=== PATIENT | male | born 1935 | race African-American/Black ===

== ENCOUNTER 2018-07-27 22:26 | Inpatient (IN) | payer MEDICARE ==
[2018-07-28] MEDS ORDERED: Dextrose 5% in Water 1,000 ML IV PRN (03:04)
[2018-07-28] MEDS ORDERED: Dextrose 50% Abboject 50 ML SYRINGE SLOW IVP PRN (03:04)
[2018-07-28] MEDS ORDERED: HumaLOG 300 UNITS/3 ML VIAL SC PRN (03:04)
[2018-07-28] MEDS ORDERED: Acetaminophen 325 MG TAB PO PRN (03:04)
[2018-07-28] MEDS ORDERED: Ondansetron PF 4 MG/2 ML Vial IVP PRN (03:04)
--- NOTE | 2018-07-28 03:41 | HP ---
PRIMARY CARE PHYSICIAN: Dr. Jonathan Knight. CHIEF COMPLAINT: Swelling and pain above right testicle. HISTORY OF PRESENT ILLNESS: Mr. Latosha Schulz is an 82-year-old male with a past medical history of hypertension, coronary artery disease, diabetes, who presents to the emergency department for swelling and pain of the groin area above the right testicle. The patient has been having this swelling for the past week, that has been getting worse. It started with 2 pimples that were bursted by his , and since then, it has become worse. The patient denies any fever. The patient denies any oozing of pus. The patient was not on any kind of antibiotics at home. The patient also denies any chest pain, nausea, vomiting, abdominal pain, diarrhea or shortness of breath. The patient reports that he has been compliant with his medication. PAST MEDICAL HISTORY: Diabetes, hypertension, coronary artery disease, and sleep apnea. PAST SURGICAL HISTORY: Coronary artery disease with bypass and stent. SOCIAL HISTORY: The patient denies smoking, drinking alcohol or any kind of illicit drugs. FAMILY HISTORY: Positive for myocardial infarction of mother. ALLERGIES: NO KNOWN ALLERGIES TO DRUGS. MEDICATIONS: The patient's current home medications include lovastatin, Lasix, spironolactone, enalapril, carvedilol, metformin, felodipine, aspirin, K-Dur, and Plavix. REVIEW OF SYSTEMS: Ten-point review of systems negative other than mentioned in the HPI. PHYSICAL EXAMINATION: VITAL SIGNS: Blood pressure 100/47, pulse 60, respiration rate 14, temperature 99, and O2 saturation 94% on room air. GENERAL: The patient is alert and is not in acute distress. HEAD: Atraumatic. EYES: Extraocular movement intact. EARS, NOSE, AND THROAT: No exudate, drainage or bleeding noted. NECK: No lymphadenopathy noted. CARDIOVASCULAR: No murmur, rubs or gallops. Regular rate and rhythm. RESPIRATORY: Clear bilaterally. No wheezes or rales noted. GI: Bowel sounds positive. Soft and nontender. : The patient has area above the scrotum anywhere from 4 to 5 inches x 1.5 inches of induration and tenderness noted. Unable to visualize any color changes due to the dark skin. No oozing of pus noted. Scrotum does not appear to be tender and there does not seem to be any swelling on the right side of the scrotum. Penis and left scrotum and area above the left scrotum, no swelling, tenderness or erythema noted. LOWER EXTREMITIES: No bilateral edema noted. SKIN: Except for what mentioned in the examination appeared to be normal. LABORATORY DATA: White blood cell count 16.3, hemoglobin 11.4, hematocrit 35.9, and platelets 144. Sodium 138, potassium 3.9, chloride 105, bicarb 20, BUN 28, creatinine 2.32, and glucose 155. CT of abdomen and pelvis reviewed. Incomplete imaging of the scrotum and groin of the right side, but there appears to be area of inflammation noted; however, it was not fully imaged. ASSESSMENT AND PLAN: 1. Cellulitis of the right groin area above the scrotum. Incomplete imaging on the CT scan. 2. Leukocytosis. 3. Elevated creatinine concerning for acute kidney injury. 4. Hypertension. 5. Coronary artery disease. 6. Diabetes. PLAN: The patient likely has cellulitis. Unable to rule out abscess at this point given incomplete CT abdomen imaging of the groin and the scrotum area. Per my examination, I did not feel any area of tenderness of the right scrotum. The patient was given vanc and Zosyn at the outside ER. We will continue vancomycin and Zosyn at this point. Obtain blood cultures. Obtain lactic acid and CRP. Ultrasound of the abdominal wall and scrotum ordered. If there is concern for abscess, recommend a urological consult. KIMBERLY. Review of the chart indicated that the patient's creatinine baseline seems to be around 1.37. The patient's creatinine on admission was 2.32. We will give gentle IV hydration for one day. Repeat labs in the morning. Diabetes. We will hold home metformin. We will manage with sliding scale insulin, low dose. Hypertension. Continue home medication. Coronary artery disease. Continue home medication. Medical power of portrait consultant, . The patient is full code. DVT prophylaxis addressed. Job ID: [id number]
[2018-07-28 03:48] LABS: #Basophils 0.1 thou/uL (0.0-0.2); #Eosinphils 0.3 thou/uL (0.0-0.7); #Monocytes 0.9 thou/uL (0.11-0.59); #Neutrophils 11.1 thou/uL (1.40-6.50); %Basophils 0.4 % (0.0-1.0); %Eosinophils 1.8 % (0.0-10.0); %Lymphocytes 14.1 % (21.0-51.0); %Monocytes 6.5 % (0.0-10.0); %Neutrophils 77.3 % (42.0-75.0); Hemoglobin 11.8 g/dL (14.0-18.0); Mean Corpuscular HGB CONC 31.9 g/dL (32.0-36.0); Mean Corpuscular Hemoglobin 31.8 pg (27.0-31.0); Mean Corpuscular Volume 99.7 fL (78.0-98.0); Platelet Count 152 thou/uL (130-400); RBC Distribution Width 13.4 % (11.5-14.5); Red Blood Cell (RBC) Count 3.72 mill/uL (4.70-6.10); White Blood Cell (WBC) Count 14.3 thou/uL (4.8-10.8)
[2018-07-28 04:00] LABS: Lactic Acid 0.9 mmol/L (0.5-2.2)
[2018-07-28 04:02] LABS: Anion Gap 13 mmol/L (10-20); BUN (Urea Nitrogen) 26 mg/dL (8.4-25.7); CRP (Inflammatory) 25.06 mg/dL (= or < 0.5); Calc. Creatinine Clearance 0 mL/min (70-130); Calcium 9.1 mg/dL (7.8-10.44); Carbon Dioxide 22 mmol/L (23-31); Chloride 106 mmol/L (98-107); Estimated GFR-MDRD 37; Glucose 139 mg/dL (83-110); Sodium 137 mmol/L (136-145)
[2018-07-28 04:05] VITALS: BMI 36.7
[2018-07-28] MEDS: Sodium Chloride 0.9% 1,000 ML IV SCH ×2 (04:11→20:23)
[2018-07-28] MEDS ORDERED: [UNRECOGNIZED DRUG - REMARK] IVPB PRN (04:22)
[2018-07-28] MEDS: Piperacillin/Tazobactam 2.25 GM in Sodium Chloride 0.9% 100 ML IVPB SCH ×3 (05:40→21:54)
[2018-07-28] MEDS: Heparin 5,000 UNITS/ML VIAL SC SCH ×4 (09:07→20:22)
--- NOTE | 2018-07-28 09:54 | CT ---
PRELIMINARY REPORT/[facility]/EMERGENTY AFTER-HOURS PROCEDURE CT Abdomen and Pelvis With Contrast EXAM DATE/TIME: 07/28/2018 12:44 AM CLINICAL HISTORY: 82 years old, male; Pain / swelling groin area; Eval for possible abscess / infection to groin area, drainage from wound. TECHNIQUE: Axial computed tomography images of the abdomen and pelvis with intravenous contrast. Coronal reforma tted images were created and reviewed. COMPARISON: No relevant prior studies available. FINDINGS: Lower thorax: Elevated right hemidiaphragm. Coronary artery calcification. Area of consolidation and/ or atelectasis within the right lower lobe. ABDOMEN: Liver: Normal. No mass. Gallbladder and bile ducts: Normal. No calcified stones. No ductal dilation. Pancreas: Normal. No ductal dilation. Spleen: Normal. No splenomegaly. Adrenals: Normal. No mass. 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 2.1 cm cyst in the la teral left renal cortex. No hydronephrosis. Stomach and bowel: Scattered colon diverticuli without evidence of diverticulitis. Appendix: No evidence of appendicitis. PELVIS: Bladder: Unremarkable as visualized. Reproductive: The scrotum is incompletely imaged but does exhibit subcutaneous edema. ABDOMEN and PELVIS: Intraperitoneal space: Normal. No free air. No significant fluid collection. Bones/joints: Spinal and right hip degenerative changes. Prior median sternotomy. Soft tissues: Small fat-containing umbilical / periumbilical hernia. Fat-containing inguinal hernias. No discrete soft tissue abscess. Vasculature: Normal. No abdominal aortic aneurysm. Lymph nodes: Normal. No enlarged lymph nodes. IMPRESSION: 1. No discrete soft tissue abscess. 2. The scrotum is incompletely imaged but does exhibit subcutaneous edema. 3. Scattered colon diverticuli without evidence of diverticulitis. 4. Area of consolidation and/or atelectasis within the right lower lobe. Thank you for allowing us to participate in the care of your patient. Dictated and Authenticated by: Brian Herzog MD 07/28/2018 1:29 AM Central Time ([place] & [place]) FINAL REPORT ABDOMEN CT WITH CONTRAST PELVIC CT WITH CONTRAST: HISTORY: Possible abscess or infection. Swelling. COMPARISON: None. FINDINGS: Limited evaluation due to motion degradation. This report is in agreement with the preliminary repor t by [facility]. Consolidation of the right lower lobe may be due to atelectasis or pneumonia. 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 Bilaterally, no obstructive uropathy. Visualized solid organs have overall normal enhancement. There is no evidence of bowel obstruction. Diverticulosis, without evidence of diverticulitis. Normal caliber appendix. Ventral abdominal hernia containing me senteric fat. There does appear to be edema involving the visualized scrotal soft tissues. No evide nce of a soft tissue or intraabdominal/intrapelvic abscess. POS: [facility]
--- NOTE | 2018-07-28 09:55 | ULT ---
TESTICULAR ULTRASOUND: HISTORY: Right scrotal swelling. COMPARISON: None. TECHNIQUE: Boykin scale, color flow, Doppler imaging, and spectral waveform analysis is performed of the left and right testicle. FINDINGS: RIGHT HEMISCROTUM: The right testicle has a homogeneous echotexture. No intratesticular masses. The right testicle jeff sures 3.7 x 2.3 x 1.7 cm. The right epididymis has a normal echotexture, measuring 2.2 x 2.1 x 2.7 c m. There is a small amount of fluid in the right hemiscrotum. LEFT HEMISCROTUM: Left testicle has a homogeneous echotexture, without intratesticular masses. Left testicle measures 2.2 x 2.1 x 2.7 cm. The left epididymis is not appreciated. There is fluid in the left hemiscrotum. Along the left inferior left scrotal wall, there are 2 separate anechoic foci measuring 0.6 and 0.7 c m respectively. Etiology of these lesions is uncertain. There is evidence of bilateral scrotal wall thickening. TESTICULAR DOPPLER: Symmetric flow to both testicles. IMPRESSION: 1. Scrotal soft tissue swelling. 2. Nonspecific cystic lesions in the inferior left scrotal wall. 3. Symmetric testicular Doppler. 4. Enlarged right epididymis. Correlate clinically for epididymitis. The left epididymitis is not appreciated. 5. Bilateral hydroceles, left greater than right. POS: [facility]
[2018-07-28] MEDS: Vancomycin HCl 1.75 GM in Sodium Chloride 0.9% 500 ML IVPB SCH (15:08)
[2018-07-28] MEDS ORDERED: ISOVUE-370 76%-LOCM 1 ML ONE (16:48)
[2018-07-28] MEDS: HYDROcodone/Acetaminophen 5/325 mg Tablet PO PRN (20:23)
[2018-07-29] MEDS: Piperacillin/Tazobactam 2.25 GM in Sodium Chloride 0.9% 100 ML IVPB SCH ×5 (00:56→23:50)
[2018-07-29] MEDS: Heparin 5,000 UNITS/ML VIAL SC SCH ×3 (08:31→20:36)
[2018-07-29] MEDS ORDERED: Lidocaine 1% (PF) 30 ML VIAL ONE (10:32)
[2018-07-29] MEDS ORDERED: Lidocaine 1% (PF) 30 ML VIAL SC SCH (11:00)
[2018-07-29] MEDS ORDERED: traMADol HCl 50 MG TAB PO PRN (11:09)
[2018-07-29] MEDS ORDERED: Fentanyl 100 MCG/2 ML VIAL SLOW IVP SCH (11:30)
--- NOTE | 2018-07-29 11:55 | CON ---
DATE OF CONSULTATION: 07/29/2018 CONSULTING PHYSICIAN: Keri Ferguson MD. CONSULTED PHYSICIAN: Mahesh Cabrera MD REASON FOR CONSULTATION: Epididymitis. HISTORY OF PRESENT ILLNESS: Mr. Schulz is an 82-year-old black male who presented to the emergency room with a 1-week history of groin swelling and inguinal pain. He reports that he had two pimple like structures on his scrotum near the groin, which his was found some hair coming out of these pimples. She plucked the hairs to try to promote better drainage, but unfortunately area got increasingly more red and swollen. The entire scrotum and penis area started to swell. Subsequently, the patient did not report any fevers or significant pain, although the area began looking worse, so he eventually came into the emergency room yesterday. At that time, he underwent a CT scan which demonstrated some nonspecific scrotal swelling and subsequently a scrotal ultrasound, which demonstrated normal testicles with good blood flow, moderate hydroceles and significant scrotal wall thickening. I was consulted for further assistance. On discussion with the patient, he reports no significant voiding issues or dysfunction. He states he has not had any hematuria. Again, no fevers, no nausea or vomiting, and no significant pain in that area. He did report that an area on the groin ruptured approximately two days ago with a significant amount of pus that drained out, it has been draining some purulent fluid since then. He has already been started on vancomycin and Zosyn per the medicine team. ALLERGIES: NONE. HOME MEDICATIONS: 1. Potassium chloride. 2. Albuterol. 3. Metformin. 4. Lovastatin. 5. Felodipine. 6. Carvedilol. 7. Spironolactone. 8. Plavix. 9. Furosemide. 10. Enalapril. PAST MEDICAL HISTORY: 1. Diabetes mellitus type 2. 2. Hypertension. 3. Coronary artery disease. 4. Obstructive sleep apnea. PAST SURGICAL HISTORY: 1. CABG. 2. Stent. FAMILY HISTORY: Significant for myocardial infarction in his mother. SOCIAL HISTORY: The patient denies smoking, alcohol abuse, or any kind of illicit drugs. He lives with his . REVIEW OF SYSTEMS: A 12-point review of systems is reviewed and otherwise negative other than what was consulted on the HPI. PHYSICAL EXAMINATION: VITAL SIGNS: Temperature 98.1, pulse 72, respirations 18, blood pressure 116/55, saturation 92% on room air. GENERAL: No apparent distress, communicating, and alert, well nourished, well developed, appears stated age. HEENT: Normocephalic, atraumatic. Sclerae nonicteric. Pupils are symmetric and round. The patient is currently wearing his CPAP mask. Trachea midline. CARDIOVASCULAR: Regular rate and rhythm. Normal S1 and S2. Symmetric pulses. CHEST: No increased work of breathing. Symmetric expansion of lungs. Clear anteriorly. ABDOMEN: Soft, nontender, nondistended. Positive bowel sounds. There is an umbilical hernia present which is easily reducible and nontender. No organomegaly or peritoneal signs. : The patient is uncircumcised. Does have significant penile edema, which is compressible without any crepitus, erythema, or induration. There is also scrotal wall edema with lax hydroceles bilaterally. Testes bilaterally descended. Testicles are nontender and do not demonstrate any signs of orchitis or epididymitis. The epididymis are normal on both sides. Within the groin, there does not appear to be an indurated hard area to the right lateral aspect of the scrotum near the inguinal crease, which is draining purulent fluid. There is no crepitus or evidence of Shaylee gangrene. EXTREMITIES: No clubbing, cyanosis, or edema. There is a large well-healed scar on his left medial thigh. MUSCULOSKELETAL: No joint deformities or joint erythema noted. Full range of motion. SKIN: Warm and dry. Good turgor. No rashes or lesions other than that comes on in the genitourinary exam. NEUROLOGIC: Cranial nerves 2 through 12 appear grossly intact. No focal sensory or motor deficits identified. PSYCHIATRIC: Alert, oriented x3. Appropriate mood and affect. LABORATORY EVALUATION: The full set of labs in the [facility] system which I have reviewed. Of note, the patient's white count is elevated at 14.3, hemoglobin of 11.8. Creatinine is currently 2.08. Most recent A1c as of 2014 is 7%. IMAGING: CT abdomen and pelvis with contrast on July 28 demonstrates no discrete soft tissue abscesses. The scrotum was incompletely imaged, but does exhibit subcutaneous edema. There are scattered colonic diverticula without evidence of diverticulitis. An area of consolidation and atelectasis within the right lower lobe. Scrotal ultrasound on July 28 also demonstrates scrotal soft tissue swelling with nonspecific cystic lesion in the inferior left scrotal wall. Symmetric testicular Doppler findings enlarged right epididymis, left epididymis was not appreciated. Bilateral hydroceles, left greater than right. ASSESSMENT AND PLAN: An 82-year-old black male with diabetes with a right inguinal abscess without evidence of clinical epididymitis. He may have some reaction of his epididymis and testicle on the right side due to the proximity of the abscess cavity. He does have a reactive hydrocele, but this is all likely reactive tissue swelling and possible cellulitis from his infection rather than the primary epididymitis and orchitis. The patient has already undergone an I and D (see below for details) with Gram stain and culture taken. The patient will need wound care with once daily iodoform dressing changes, which his states that she can do at home. I will see the patient back in my office in approximately one week after his discharge to ensure that he is healing appropriately. It is imperative that he keep his blood sugar control during this time to ensure that he feels adequately without progression of worsening infection or Shaylee gangrene, which I have cautioned the patient about. I would recommend continuing oral antibiotics which can be tapered based on culture results. If the culture grows anything, the patient is already on antibiotics. If nothing grows, I would give consideration to something with some MRSA coverage and gram-positive coverage. Bactrim, clindamycin, Augmentin or Keflex are initial good choices, but we will wait for the culture results to verify ultimately. I am not entirely sure if the lung findings are anything of concern, I will leave this to the Medicine team to determine if this requires additional treatment or just observation alone. I will continue to follow the patient while on the hospital and then again see him in the outpatient after one week. SUMMARY OF RECOMMENDATIONS: 1. Iodoform gauze changes once a day. 2. Continue IV antibiotics until culture results and then tapered to oral antibiotics. 3. The patient will need to follow up in at least one week for wound check. PROCEDURE IN DETAIL: The patient was consented for an incision and drainage of the inguinal abscess with risks and benefits discussed. After identification of the patient and time-out, the area was prepped with Betadine solution. The area was infiltrated with approximately 7 mL of 1% lidocaine plain. An incision was made with a 15 blade through the abscess wall into the abscess cavity. There was a small amount of purulence, but most of the abscess had already drained out previously. A culture was taken with a culture swab and sent off for Gram stain and aerobic and anaerobic cultures. The area was then copiously washed out with hydrogen peroxide and then normal saline and the cavity packed with quarter-inch iodoform gauze. 4x4s were then applied over the iodoform and abscess incision site. The patient tolerated the procedure well. Job ID: [id number]
--- NOTE | 2018-07-29 12:21 | PDOC.PN ---
- Subjective Encounter Start Date: 07/29/18 Encounter Start Time: 09:20 - Objective Resuscitation Status - Order Detail: 07/28/18 02:36 Resuscitation Status Routine Resuscitation Status: FULL: Full Resuscitation MAR Reviewed: Yes Vital Signs & Weight: Vital Signs (12 hours) Temp Pulse Resp BP Pulse Ox 07/29/18 11:14 97.0 F L 64 16 107/67 96 07/29/18 08:00 98.1 F 73 18 116/55 L 92 L Weight Admit Weight 189 lb 12.8 oz Weight 263 lb 4.8 oz I&O: 07/28/18 07/29/18 07/30/18 06:59 06:59 06:59 Intake Total 383.1 2302 Balance 383.1 2302 Result Diagrams: 07/28/18 03:23 07/28/18 03:23 Additional Labs: Accuchecks 07/29/18 07/28/18 07/28/18 11:15 20:27 16:35 POC Glucose 136 H 179 H 169 H labs reviewed by me Phys Exam - Physical Examination Obese HEENT: moist MMs, sclera anicteric, oral pharynx no lesions, 2+ tonsils Neck: supple Respiratory: clear to auscultation bilateral Cardiovascular: RRR, no rub S1, S2 Gastrointestinal: soft, non-tender, no distention, positive bowel sounds right side of scrotum firm, tender Neurological: moves all 4 limbs Psychiatric: normal affect, A&O x 3 Dx/Plan (1) Scrotal abscess Code(s): N49.2 - INFLAMMATORY DISORDERS OF SCROTUM Status: Acute Comment: s/ p I&D. Continue IV Zosyn, await cultures. (2) KIMBERLY (acute kidney injury) Code(s): N17.9 - ACUTE KIDNEY FAILURE, UNSPECIFIED Status: Acute Comment: Hold nephrotoxic medications. Continue IV fluids, recheck creatinine (3) HTN (hypertension) Code(s): I10 - ESSENTIAL (PRIMARY) HYPERTENSION Status: Chronic Comment: controlled (4) DM2 (diabetes mellitus, type 2) Status: Chronic Comment: controlled - Plan plan discussed w/ family, continue antibiotics, out of bed/ambulate * . Review of Systems - Review of Systems Constitutional: negative: fever, chills, sweats, weakness, malaise Respiratory: negative: Cough, Dry, Shortness of Breath, Hemoptysis, SOB with Excertion, Pleuritic Pain, Sputum, Wheezing Cardiovascular: negative: chest pain, palpitations, orthopnea, paroxysmal nocturnal dyspnea, edema, light headedness Gastrointestinal: negative: Nausea, Vomiting, Abdominal Pain, Diarrhea, Constipation, Melena, Hematochezia Genitourinary: Other (scrotal pain). negative: Dysuria, Frequency, Incontinence , Hematuria, Retention Skin: negative: Rash, Lesions, Torin, Bruising - Medications/Allergies Allergies/Adverse Reactions: Allergies Allergy/AdvReac Type Severity Reaction Status Date / Time No Known Drug Allergies Allergy Verified 07/28/18 04:10 Medications: Current Medications Acetaminophen (Tylenol) 650 mg PO Q4H PRN PRN Reason: Headache/Fever/Mild Pain (1-3) Hydrocodone Bitart/Acetaminophen ([place] 5/325) 1 tab PO Q4H PRN PRN Reason: Moderate Pain (4-6) Last Admin: 07/28/18 20:23 Dose: 1 tab Dextrose/Water (Dextrose 50%) 25 gm SLOW IVP PRN PRN PRN Reason: Hypoglycemia Fentanyl (Sublimaze) 50 mcg SLOW IVP NOW REPLACED BY [facility] Stop: 07/29/18 13:30 Last Admin: 07/29/18 11:41 Dose: 50 mcg Glucagon (Glucagon) 1 mg IM PRN PRN PRN Reason: Hypoglycemia Heparin Sodium (Porcine) (Heparin) 5,000 units SC TID REPLACED BY [facility] Last Admin: 07/29/18 08:31 Dose: 5,000 units Dextrose/Water (D5w) 1,000 mls @ 0 mls/hr IV .Q0M PRN PRN Reason: Hypoglycemia Piperacillin Sod/Tazobactam (Sod 2.25 gm/ Sodium Chloride) 100 mls @ 200 mls/ hr IVPB Q6HR REPLACED BY [facility] Last Admin: 07/29/18 11:42 Dose: 100 mls Vancomycin HCl 1.75 gm/ Sodium (Chloride) 500 mls @ 250 mls/hr IVPB Q24HR REPLACED BY [facility] Last Admin: 07/28/18 15:08 Dose: 500 mls Insulin Human Lispro (Humalog) 0 units SC .MILD SLIDING SCALE PRN PRN Reason: Mild Correctional Scale Lidocaine HCl (Xylocaine 1% Pf) 10 ml SC ONE REPLACED BY [facility] Stop: 07/29/18 14:00 Miscellaneous Medication (Pharmacy To Dose) 1 each IVPB PRN PRN PRN Reason: Pharmacy to dose Ondansetron HCl (Zofran) 4 mg IVP Q6H PRN PRN Reason: Nausea/Vomiting Sodium Chloride (Flush - Normal Saline) 10 ml IVF Q12HR [facility] Last Admin: 07/29/18 11:05 Dose: Not Given Sodium Chloride (Flush - Normal Saline) 10 ml IVF PRN PRN PRN Reason: Saline Flush Tramadol HCl (Ultram) 50 mg PO Q4H PRN PRN Reason: Moderate Pain (4-6)
[2018-07-29 14:22] LABS: Vancomycin, Trough 10.5 ug/mL
[2018-07-29] MEDS: HYDROcodone/Acetaminophen 5/325 mg Tablet PO PRN ×2 (14:33→20:38)
[2018-07-29] MEDS: Vancomycin HCl 1.75 GM in Sodium Chloride 0.9% 500 ML IVPB SCH (14:37)
[2018-07-29] MEDS: Sodium Chloride 0.9% 1,000 ML IV SCH (14:40)
[2018-07-29] MEDS: Carvedilol 6.25 MG TAB PO SCH (20:35)
[2018-07-29] MEDS: Atorvastatin Calcium 10 MG TAB PO SCH (20:35)
[2018-07-30] MEDS: Piperacillin/Tazobactam 2.25 GM in Sodium Chloride 0.9% 100 ML IVPB SCH ×3 (05:49→17:09)
[2018-07-30 06:17] LABS: #Basophils 0.1 thou/uL (0.0-0.2); #Eosinphils 0.3 thou/uL (0.0-0.7); #Lymphocytes 2.4 thou/uL (1.20-3.40); #Monocytes 0.6 thou/uL (0.11-0.59); #Neutrophils 4.2 thou/uL (1.40-6.50); %Eosinophils 4.2 % (0.0-10.0); %Lymphocytes 31.3 % (21.0-51.0); %Monocytes 8.2 % (0.0-10.0); %Neutrophils 55.3 % (42.0-75.0); Hemoglobin 10.3 g/dL (14.0-18.0); Mean Corpuscular HGB CONC 30.6 g/dL (32.0-36.0); Mean Corpuscular Hemoglobin 30.9 pg (27.0-31.0); Mean Platelet Volume 8.7 fL (7.4-10.4); Platelet Count 176 thou/uL (130-400); RBC Distribution Width 13.7 % (11.5-14.5); Red Blood Cell (RBC) Count 3.33 mill/uL (4.70-6.10); White Blood Cell (WBC) Count 7.5 thou/uL (4.8-10.8)
[2018-07-30 06:39] LABS: Anion Gap 11 mmol/L (10-20); BUN (Urea Nitrogen) 16 mg/dL (8.4-25.7); Calc. Creatinine Clearance 66 mL/min (70-130); Calcium 8.6 mg/dL (7.8-10.44); Carbon Dioxide 24 mmol/L (23-31); Chloride 111 mmol/L (98-107); Estimated GFR-MDRD 54; Glucose 118 mg/dL (83-110); Sodium 142 mmol/L (136-145)
[2018-07-30] MEDS: Heparin 5,000 UNITS/ML VIAL SC SCH ×3 (07:55→20:56)
[2018-07-30] MEDS: HYDROcodone/Acetaminophen 5/325 mg Tablet PO PRN ×2 (07:58→14:50)
[2018-07-30] MEDS: Sodium Chloride 0.9% 1,000 ML IV SCH (08:37)
[2018-07-30] MEDS: Carvedilol 6.25 MG TAB PO SCH ×2 (09:21→20:55)
--- NOTE | 2018-07-30 11:13 | PDOC.PN ---
- Subjective Encounter Start Date: 07/30/18 Encounter Start Time: 09:00 Pt seen for followup re: scrotal abscess. Feels better. - Objective Resuscitation Status - Order Detail: 07/28/18 02:36 Resuscitation Status Routine Resuscitation Status: FULL: Full Resuscitation MAR Reviewed: Yes Vital Signs & Weight: Vital Signs (12 hours) Temp Pulse Resp BP BP BP Pulse Ox 07/30/18 09:21 136/77 07/30/18 09:20 136/77 07/30/18 08:00 93 L 07/30/18 07:17 98.1 F 64 20 99/66 93 L Weight Admit Weight 189 lb 12.8 oz Weight 263 lb 4.8 oz I&O: 07/29/18 07/30/18 07/31/18 06:59 06:59 06:59 Intake Total 2301 2008 Balance 2301 2008 Result Diagrams: 07/30/18 04:45 07/30/18 04:45 Additional Labs: Accuchecks 07/30/18 07/29/18 07/29/18 04:31 20:00 16:45 POC Glucose 120 H 164 H 129 H 07/29/18 07/29/18 11:15 05:04 POC Glucose 136 H 116 H Labs reviewed by me Phys Exam - Physical Examination Obese HEENT: moist MMs Neck: supple Respiratory: clear to auscultation bilateral Cardiovascular: RRR Gastrointestinal: soft scrotal tenderness Neurological: moves all 4 limbs Psychiatric: normal affect Dx/Plan (1) Scrotal abscess Code(s): N49.2 - INFLAMMATORY DISORDERS OF SCROTUM Status: Acute Comment: Continue IV Zosyn, await cultures sent yesterday after I&D. (2) KIMBERLY (acute kidney injury) Code(s): N17.9 - ACUTE KIDNEY FAILURE, UNSPECIFIED Status: Acute Comment: Improving, continue IV fluids (3) HTN (hypertension) Code(s): I10 - ESSENTIAL (PRIMARY) HYPERTENSION Status: Chronic Comment: controlled (4) DM2 (diabetes mellitus, type 2) Status: Chronic Comment: controlled - Plan * . Review of Systems - Review of Systems Respiratory: negative: Cough, Shortness of Breath, SOB with Excertion, Pleuritic Pain, Wheezing Cardiovascular: negative: chest pain, palpitations, orthopnea, paroxysmal nocturnal dyspnea, edema, light headedness Genitourinary: Other (scrotal pain) - Medications/Allergies Allergies/Adverse Reactions: Allergies Allergy/AdvReac Type Severity Reaction Status Date / Time No Known Drug Allergies Allergy Verified 07/28/18 04:10 Medications: Current Medications Acetaminophen (Tylenol) 650 mg PO Q4H PRN PRN Reason: Headache/Fever/Mild Pain (1-3) Hydrocodone Bitart/Acetaminophen ([place] 5/325) 1 tab PO Q4H PRN PRN Reason: Moderate Pain (4-6) Last Admin: 07/30/18 07:58 Dose: 1 tab Atorvastatin Calcium (Lipitor) 10 mg PO HS [facility] Last Admin: 07/29/18 20:35 Dose: 10 mg Carvedilol (Coreg) 12.5 mg PO BID [facility] Last Admin: 07/30/18 09:21 Dose: 12.5 mg Dextrose/Water (Dextrose 50%) 25 gm SLOW IVP PRN PRN PRN Reason: Hypoglycemia Felodipine (Plendil) 10 mg PO QPM [facility] Last Admin: 07/29/18 20:36 Dose: 10 mg Glucagon (Glucagon) 1 mg IM PRN PRN PRN Reason: Hypoglycemia Heparin Sodium (Porcine) (Heparin) 5,000 units SC TID [facility] Last Admin: 07/30/18 07:55 Dose: 5,000 units Dextrose/Water (D5w) 1,000 mls @ 0 mls/hr IV .Q0M PRN PRN Reason: Hypoglycemia Piperacillin Sod/Tazobactam (Sod 2.25 gm/ Sodium Chloride) 100 mls @ 200 mls/ hr IVPB Q6HR [facility] Last Admin: 07/30/18 05:49 Dose: 100 mls Vancomycin HCl 1.75 gm/ Sodium (Chloride) 500 mls @ 250 mls/hr IVPB Q24HR [facility] Last Admin: 07/29/18 14:37 Dose: 500 mls Sodium Chloride (Normal Saline 0.9%) 1,000 mls @ 50 mls/hr IV .Q20H [facility] Last Admin: 07/30/18 08:37 Dose: 1,000 mls Insulin Human Lispro (Humalog) 0 units SC .MILD SLIDING SCALE PRN PRN Reason: Mild Correctional Scale Miscellaneous Medication (Pharmacy To Dose) 1 each IVPB PRN PRN PRN Reason: Pharmacy to dose Ondansetron HCl (Zofran) 4 mg IVP Q6H PRN PRN Reason: Nausea/Vomiting Sodium Chloride (Flush - Normal Saline) 10 ml IVF Q12HR [facility] Last Admin: 07/30/18 07:56 Dose: Not Given Sodium Chloride (Flush - Normal Saline) 10 ml IVF PRN PRN PRN Reason: Saline Flush Tramadol HCl (Ultram) 50 mg PO Q4H PRN PRN Reason: Moderate Pain (4-6)
[2018-07-30] MEDS: Vancomycin HCl 1.75 GM in Sodium Chloride 0.9% 500 ML IVPB SCH (13:01)
[2018-07-30] MEDS: Atorvastatin Calcium 10 MG TAB PO SCH (20:55)
[2018-07-31] MEDS: Piperacillin/Tazobactam 2.25 GM in Sodium Chloride 0.9% 100 ML IVPB SCH ×4 (00:21→18:08)
[2018-07-31] MEDS: Sodium Chloride 0.9% 1,000 ML IV SCH ×2 (05:26→14:56)
[2018-07-31 07:42] LABS: #Basophils 0.1 thou/uL (0.0-0.2); #Eosinphils 0.3 thou/uL (0.0-0.7); #Lymphocytes 2.2 thou/uL (1.20-3.40); #Monocytes 0.6 thou/uL (0.11-0.59); #Neutrophils 4.3 thou/uL (1.40-6.50); %Basophils 1.2 % (0.0-1.0); %Eosinophils 3.9 % (0.0-10.0); %Lymphocytes 29.7 % (21.0-51.0); %Monocytes 7.5 % (0.0-10.0); %Neutrophils 57.7 % (42.0-75.0); Hemoglobin 11.7 g/dL (14.0-18.0); Mean Corpuscular HGB CONC 30.8 g/dL (32.0-36.0); Mean Corpuscular Hemoglobin 30.9 pg (27.0-31.0); Mean Platelet Volume 8.2 fL (7.4-10.4); Platelet Count 217 thou/uL (130-400); RBC Distribution Width 13.9 % (11.5-14.5); Red Blood Cell (RBC) Count 3.79 mill/uL (4.70-6.10); White Blood Cell (WBC) Count 7.4 thou/uL (4.8-10.8)
[2018-07-31 08:06] LABS: Anion Gap 13 mmol/L (10-20); BUN (Urea Nitrogen) 12 mg/dL (8.4-25.7); Calc. Creatinine Clearance 73 mL/min (70-130); Calcium 8.9 mg/dL (7.8-10.44); Carbon Dioxide 20 mmol/L (23-31); Chloride 111 mmol/L (98-107); Estimated GFR-MDRD 61; Glucose 132 mg/dL (83-110); Potassium 4.4 mmol/L (3.5-5.1); Sodium 140 mmol/L (136-145)
[2018-07-31] MEDS: HYDROcodone/Acetaminophen 5/325 mg Tablet PO PRN ×4 (08:34→20:35)
[2018-07-31] MEDS: Heparin 5,000 UNITS/ML VIAL SC SCH ×3 (08:35→20:28)
[2018-07-31] MEDS: Carvedilol 6.25 MG TAB PO SCH ×2 (08:35→20:27)
--- NOTE | 2018-07-31 09:11 | PRG ---
DATE OF SERVICE: 07/31/2018 SUBJECTIVE: The patient states that he is feeling fine. He is not having any significant pain in his right groin. He has had his dressing changed by wound care. He states that it does sting a little bit down there during the changes and on occasion, but otherwise it is feeling overall better. OBJECTIVE: VITAL SIGNS: Temperature 98, pulse 63, respirations 24, blood pressure 115/68, saturation 96% on room air. GENERAL: No apparent distress. The patient is wearing CPAP machine. ABDOMEN: Soft, nontender, nondistended. Positive bowel sounds. : There is still penoscrotal edema, but no evidence of Shaylee's gangrene or worsening cellulitis. The area of the abscess shows marked improvement in induration, tenderness, and erythema. There is serosanguineous fluid saturated onto the iodoform gauze. LABORATORY DATA: On laboratory evaluation, the full set of labs in the [facility] system, which I have reviewed. Of note, the patient's white count has dropped down to 7.4, hemoglobin 11.7. Creatinine is 1.37. Microbiology demonstrates Gram positive cocci in pairs and clusters, but speciation has not been finalized. ASSESSMENT AND PLAN: An 82-year-old black male with a right groin abscess next to the scrotum, status post I and D with significant improvement. I would recommend continuation of antibiotics at this time for at least 7 days. It does appear that he may be having staph and strep in his culture based on the Gram stain and should probably be transitioned when transition to oral antibiotics to ensure that will cover both. If final speciation does have sensitivities, then obviously we can taper according to that. I would recommend waiting until final sensitivities before discharging the patient on oral antibiotics. Again, I will see the patient in followup in 1 week after his discharge to ensure that he is healing appropriately. Blood sugar control is imperative during this time to ensure that he heals appropriately. Job ID: [id number]
[2018-07-31 13:22] LABS: Vancomycin, Trough 12.2 ug/mL
--- NOTE | 2018-07-31 13:24 | RAD ---
CHEST TWO VIEWS: HISTORY: Abnormal CT scan. Chest pain. COMPARISON: 07/28/2018 FINDINGS: The cardiac silhouette is unremarkable. The pulmonary vasculature is at the upper limits of normal. The mediastinum is midline with postoperative changes evident. The right hemidiaphragm is slightly elevated. Partial obscuration of the posterior aspect of the right hemidiaphragm where infiltrate wa s present on recent CT scan. No evidence of pneumothorax or pleural fluid. IMPRESSION: Confirmation of small focus of infiltrate at the right posterior lung base. Cause is not apparent. Clinical correlation regarding other signs and symptoms of right basilar pneumonitis is required. POS: [facility]
[2018-07-31] MEDS: Vancomycin HCl 1.75 GM in Sodium Chloride 0.9% 500 ML IVPB SCH (14:51)
--- NOTE | 2018-07-31 17:41 | PDOC.PN ---
- Subjective Encounter Start Date: 07/31/18 Encounter Start Time: 13:15 Doing well in general. Concerned that the groin area is a little bigger. Has to sit with scrotum hanging off the chair. Can't tolerate it sitting on the bed. - Objective Resuscitation Status - Order Detail: 07/28/18 02:36 Resuscitation Status Routine Resuscitation Status: FULL: Full Resuscitation Vital Signs & Weight: Vital Signs (12 hours) Temp Pulse Resp BP BP Pulse Ox 07/31/18 08:35 115/68 96 07/31/18 07:44 98.0 F 63 24 H 115/68 96 Weight Admit Weight 189 lb 12.8 oz Weight 263 lb 4.8 oz I&O: 07/30/18 07/31/18 08/01/18 06:59 06:59 06:59 Intake Total 2008 2656 Balance 2008 2656 Result Diagrams: 07/31/18 07:16 07/31/18 07:16 Additional Labs: Accuchecks 07/31/18 07/31/18 07/31/18 16:23 11:14 04:50 POC Glucose 134 H 117 H 121 H 07/30/18 20:18 POC Glucose 165 H Phys Exam - Physical Examination Constitutional: NAD Respiratory: no wheezing, no rales, no rhonchi Cardiovascular: RRR, no significant murmur, no rub Gastrointestinal: soft, non-tender, no distention Deviation from normal: Significant edema of the penis and scrotum. Has persistent edema of the -: right groin. No significant drainage. Dx/Plan (1) Obstructive sleep apnea Code(s): G47.33 - OBSTRUCTIVE SLEEP APNEA (ADULT) (PEDIATRIC) Status: Acute (2) KIMBERLY (acute kidney injury) Code(s): N17.9 - ACUTE KIDNEY FAILURE, UNSPECIFIED Status: Acute Comment: Improving, continue IV fluids (3) Scrotal abscess Code(s): N49.2 - INFLAMMATORY DISORDERS OF SCROTUM Status: Acute Comment: Continue IV Zosyn, await cultures sent yesterday after I&D. (4) DM2 (diabetes mellitus, type 2) Status: Chronic Comment: controlled (5) HTN (hypertension) Code(s): I10 - ESSENTIAL (PRIMARY) HYPERTENSION Status: Chronic Comment: controlled - Plan * Continue abx. * Culture from [facility] is showing some Staph lugdenensis. Micro says that there is a pattern of resistance. May be two staph sp. One likely epi. * Will await cultures because of the resistance concerns. * Continue to manage blood sugars, * Continue Bipap.
[2018-07-31] MEDS: Atorvastatin Calcium 10 MG TAB PO SCH (20:27)
[2018-08-01] MEDS: Piperacillin/Tazobactam 2.25 GM in Sodium Chloride 0.9% 100 ML IVPB SCH ×5 (00:28→23:30)
[2018-08-01 05:50] LABS: #Basophils 0.1 thou/uL (0.0-0.2); #Eosinphils 0.2 thou/uL (0.0-0.7); #Lymphocytes 2.1 thou/uL (1.20-3.40); #Monocytes 0.5 thou/uL (0.11-0.59); #Neutrophils 3.8 thou/uL (1.40-6.50); %Basophils 0.8 % (0.0-1.0); %Eosinophils 3.6 % (0.0-10.0); %Lymphocytes 31.2 % (21.0-51.0); %Monocytes 7.4 % (0.0-10.0); %Neutrophils 56.9 % (42.0-75.0); Hemoglobin 10.5 g/dL (14.0-18.0); Mean Corpuscular HGB CONC 31.1 g/dL (32.0-36.0); Mean Corpuscular Hemoglobin 31.2 pg (27.0-31.0); Mean Platelet Volume 8.1 fL (7.4-10.4); Platelet Count 210 thou/uL (130-400); RBC Distribution Width 13.9 % (11.5-14.5); Red Blood Cell (RBC) Count 3.36 mill/uL (4.70-6.10); White Blood Cell (WBC) Count 6.6 thou/uL (4.8-10.8)
[2018-08-01 06:19] LABS: Anion Gap 10 mmol/L (10-20); BUN (Urea Nitrogen) 11 mg/dL (8.4-25.7); Calc. Creatinine Clearance 80 mL/min (70-130); Calcium 8.5 mg/dL (7.8-10.44); Carbon Dioxide 22 mmol/L (23-31); Chloride 112 mmol/L (98-107); Estimated GFR-MDRD 68; Glucose 113 mg/dL (83-110); Potassium 4.1 mmol/L (3.5-5.1); Sodium 140 mmol/L (136-145)
[2018-08-01] MEDS: Carvedilol 6.25 MG TAB PO SCH ×2 (09:31→20:56)
[2018-08-01] MEDS: Heparin 5,000 UNITS/ML VIAL SC SCH ×3 (09:32→20:57)
[2018-08-01] MEDS: Vancomycin HCl 1.75 GM in Sodium Chloride 0.9% 500 ML IVPB SCH (14:31)
[2018-08-01] MEDS: HYDROcodone/Acetaminophen 5/325 mg Tablet PO PRN (14:41)
[2018-08-01] MEDS: Atorvastatin Calcium 10 MG TAB PO SCH (20:56)
[2018-08-01] MEDS: Sodium Chloride 0.9% 1,000 ML IV SCH (22:19)
--- NOTE | 2018-08-01 23:21 | PDOC.PN ---
- Subjective Encounter Start Date: 08/29/18 Encounter Start Time: 10:00 Still has some edema of the penis and scrotum. Feeling a little better. - Objective Resuscitation Status - Order Detail: 07/28/18 02:36 Resuscitation Status Routine Resuscitation Status: FULL: Full Resuscitation Vital Signs & Weight: Vital Signs (12 hours) Temp Pulse Resp BP BP Pulse Ox 08/01/18 20:57 71 08/01/18 20:56 144/68 H 08/01/18 20:00 98.0 F 71 18 144/68 H 92 L Weight Admit Weight 189 lb 12.8 oz Weight 263 lb 4.8 oz I&O: 07/31/18 08/01/18 08/02/18 06:59 06:59 06:59 Intake Total 2656 2550 1650 Balance 2656 2550 1650 Result Diagrams: 08/01/18 05:09 08/01/18 05:09 Additional Labs: Accuchecks 08/01/18 08/01/18 08/01/18 19:49 16:16 11:51 POC Glucose 119 H 110 107 08/01/18 04:38 POC Glucose 111 H Phys Exam - Physical Examination Constitutional: NAD Respiratory: no wheezing, no rales, no rhonchi, clear to auscultation bilateral Cardiovascular: RRR, no significant murmur, no rub Gastrointestinal: soft, non-tender, no distention, positive bowel sounds Musculoskeletal: no edema Psychiatric: normal affect, A&O x 3 Deviation from normal: area edema. Less inflammation Dx/Plan (1) Scrotal abscess Code(s): N49.2 - INFLAMMATORY DISORDERS OF SCROTUM Status: Acute Comment: Continue IV Zosyn, await cultures sent yesterday after I&D. (2) KIMBERLY (acute kidney injury) Code(s): N17.9 - ACUTE KIDNEY FAILURE, UNSPECIFIED Status: Acute Comment: Improving, continue IV fluids (3) Obstructive sleep apnea Code(s): G47.33 - OBSTRUCTIVE SLEEP APNEA (ADULT) (PEDIATRIC) Status: Acute (4) DM2 (diabetes mellitus, type 2) Status: Chronic Comment: controlled (5) HTN (hypertension) Code(s): I10 - ESSENTIAL (PRIMARY) HYPERTENSION Status: Chronic Comment: controlled - Plan * Continuing to await results of the culture. * Continue abx. * Resistance pattern noted in the lab for staph lugdenensis, therefore compelled to get final results.
[2018-08-02] MEDS: Piperacillin/Tazobactam 2.25 GM in Sodium Chloride 0.9% 100 ML IVPB SCH ×2 (05:22→12:50)
[2018-08-02] MEDS: Carvedilol 6.25 MG TAB PO SCH (08:37)
[2018-08-02] MEDS: Heparin 5,000 UNITS/ML VIAL SC SCH ×2 (08:39→14:24)
[2018-08-02] MEDS: Vancomycin HCl 1.75 GM in Sodium Chloride 0.9% 500 ML IVPB SCH (14:24)
[2018-08-02 16:58] VITALS: BP 141/73; TEMP 98.5
[2018-08-02] MEDS: Sodium Chloride 0.9% 1,000 ML IV SCH (17:45)
== END 2018-08-02 19:30 | disposition home or self-care (01) | DRG 982 ==
LOC: ERS 22:26 → T4-B 07-28 03:57 → OBSVTOIN 07-28 03:57
PROVIDERS: ADMIT Family Medicine; ATTEND Family Medicine
PROC: 0Y950ZZ Drainage of Right Inguinal Region, Open Approach (ICD-10-PCS; principal; 2018-07-30)
DX: N49.2 Inflammatory disorders of scrotum (principal); L03.314 Cellulitis of groin; N17.9 Acute kidney failure, unspecified; I10 Essential (primary) hypertension; E11.9 Type 2 diabetes mellitus without complications; G47.33 Obstructive sleep apnea (adult) (pediatric); I25.10 Atherosclerotic heart disease of native coronary artery without angina pectoris; Z79.84 Long term (current) use of oral hypoglycemic drugs; Z79.02 Long term (current) use of antithrombotics/antiplatelets; Z95.1 Presence of aortocoronary bypass graft; Z95.5 Presence of coronary angioplasty implant and graft; Z82.49 Family history of ischemic heart disease and other diseases of the circulatory system
CPT/HCPCS: 36415; 36416; 71046; 74177; 76870; 80048; 80202; 83605; 85025; 86140; 87040; 87070; 87205; 93976; 96360; J1644; J2001; J2543; J3010; J3370; J7050; Q9966